=== PATIENT | male | born 1995 | race Caucasian/White ===

== ENCOUNTER 2022-04-01 15:09 | Emergency (ER) | payer OTHER ==
[~2022-04-01] VITALS: Ht 177.8 cm; Wt 73.0 kg
[2022-04-01] MEDS ORDERED: IBUPROFEN 600MG TABLET PO ONE (16:00)
[2022-04-01] MEDS ORDERED: IBUP-2029 MT (16:05)
[2022-04-01 16:20] VITALS: BP 124/80
== END 2022-04-01 16:30 | disposition home or self-care (01) ==
LOC: ER 15:09
DX: S30.1XXA Contusion of abdominal wall, initial encounter (principal); W22.8XXA Striking against or struck by other objects, initial encounter; Y93.89 Activity, other specified; Y92.89 Other specified places as the place of occurrence of the external cause; Y99.8 Other external cause status
CPT/HCPCS: 99283